=== PATIENT | male | born 1975 | race Caucasian/White ===

== ENCOUNTER 2020-05-22 06:54 | Outpatient (NON) | payer BC, SELFPAY ==
[2020-05-22 18:05] LABS: SARS-CoV-2 RNA PCR Positive
== END 2020-05-22 06:55 ==
PROVIDERS: PCP Family Medicine; Visit Provider Nurse Practitioner Family
DX: U07.1 COVID-19 (principal); R50.9 Fever, unspecified
CPT/HCPCS: 87635; C9803; U0003

== ENCOUNTER 2020-12-18 13:50 | Outpatient (CLI) | payer OTHER, SELFPAY ==
--- NOTE | ~2020-12-18 | XR_ITS ---
XR lumbar spine 2-3V DATE: 12/18/2020 14:48 INDICATION: Low back pain TECHNIQUE: AP, lateral, coned lateral lumbosacral views COMPARISON: 05/30/2006 lumbar spine 06/16/2006 MR lumbar spine FINDINGS: Minimal dextro scoliosis of the lower thoracic and lumbar spine. There is mild degenerative disease at L3-4 and moderately severe degenerative disease at L4-5. No fracture or bone destruction is evident. The T12-L5 included pedicles are intact. No spondylolisth esis. The sacroiliac joints are normal. IMPRESSION: Degenerative disc disease, mild at L3-4, moderately at L4-5, increased in severity since 05/30/2006 Reviewed, dictated and finalized at location B. IMPRESSION: Degenerative disc disease, mild at L3-4, moderately at L4-5, increa sed in severity since 05/30/2006
--- NOTE | ~2020-12-18 | XR_ITS ---
XR_[id number]_CR DATE: 12/18/2020 14:47 INDICATION: Neck pain TECHNIQUE: AP, open-mouth, lateral views COMPARISON: None FINDINGS: C1 and C2 are normally aligned and the odontoid process is intact. No fracture or dislocati on or locked facet or prevertebral soft tissue swelling. There is minimal anterolisthesis at C4-5. There is mild loss of interspace height at C4-5. There is moderately severe degenerative disc disease at C5-6. There is mild levoscoliosis of the cervical and upper thoracic spine. IMPRESSION: Mild levoscoliosis of cervical and upper thoracic spine Minimal anterolisthesis at C4-5 Mild degenerative disc disease at C4-5 Moderately severe degenerative disease at C5-6 Reviewed, dictated and finalized at Location [facility]. Reviewed, dictated and finalized at location B.
--- NOTE | ~2020-12-18 | XR_ITS ---
EXAMINATION: XR knee RT 3V DATE: 12/18/2020 14:47 INDICATION: Right knee osteoarthritis. TECHNIQUE: 3 views of right knee were obtained. COMPARISON: None. FINDINGS: Bone alignment is normal. No fracture. There is mild osteoarthritis of lateral and patellof emoral compartments characterized by tiny marginal osteophytes. No knee joint effusion. IMPRESSION: 1. Mild right knee osteoarthritis. Reviewed, dictated and finalized at location A.
--- NOTE | ~2020-12-18 | XR_ITS ---
EXAMINATION: XR knee LT 3V DATE: 12/18/2020 14:47 INDICATION: Left knee primary osteoarthritis. TECHNIQUE: 3 views of left knee were obtained. COMPARISON: Left knee radiographs 11/29/2016 FINDINGS: Bone alignment is normal. No fracture. There is moderate osteoarthritis of medial compartme nt and mild osteoarthritis of lateral and patellofemoral compartments No knee joint effusion. There i s a loose body in the knee joint posteriorly. IMPRESSION: 1. Moderate left knee osteoarthritis. 2. Knee joint loose body. Reviewed, dictated and finalized at location A.
--- NOTE | ~2020-12-18 | XR_ITS ---
EXAMINATION: XR hip LT min 2V DATE: 12/18/2020 14:48 INDICATION: Left hip pain. TECHNIQUE: 3 views of left hip were obtained. COMPARISON: None. FINDINGS: Bone alignment is normal. No fracture. There is mild left hip osteoarthritis. IMPRESSION: 1. Mild left hip osteoarthritis. Reviewed, dictated and finalized at location A.
--- NOTE | ~2020-12-18 | XR_ITS ---
EXAMINATION: XR hip RT min 2V DATE: 12/18/2020 14:47 INDICATION: Right hip pain. TECHNIQUE: 3 views of right hip were obtained. COMPARISON: None. FINDINGS: Bone alignment is normal. No fracture. There is mild right hip osteoarthritis. IMPRESSION: 1. Mild right hip osteoarthritis. Reviewed, dictated and finalized at location A.
== END 2020-12-18 13:51 | disposition home or self-care (01) ==
PROVIDERS: PCP Family Medicine; Visit Provider Nurse Practitioner Family
DX: M50.321 Other cervical disc degeneration at C4-C5 level (principal); M17.0 Bilateral primary osteoarthritis of knee; M25.569 Pain in unspecified knee; M25.551 Pain in right hip; M25.552 Pain in left hip; M54.5 Low back pain; M41.83 Other forms of scoliosis, cervicothoracic region; M43.12 Spondylolisthesis, cervical region; M51.36 Other intervertebral disc degeneration, lumbar region; M16.0 Bilateral primary osteoarthritis of hip; M23.42 Loose body in knee, left knee
CPT/HCPCS: 72040; 72100; 73502; 73562